=== PATIENT | male | born 1955 | race Caucasian/White ===

== ENCOUNTER 2016-11-13 09:06 | Emergency (ER) | payer BC ==
[2016-11-13 09:27] LABS: EOSINOPHIL (%) 7.2 % (0-5); EOSINOPHIL COUNT 0.4 K/uL (0-0.3); HEMATOCRIT 47.6 % (38.0-50.0); IMMATURE GRANULOCYTE (%) 0.6 % (0.0-0.7); INSTRUMENT ABS NEUTROPHIL CT 3.1 K/uL; LYMPHOCYTE COUNT 1.4 K/uL (1.0-2.8); MCH 31.3 PG (29.0-34.0); MCHC 33.2 G/DL (30.0-36.0); MCV 94.4 FL (86-99); MEAN PLAT.VOLUME 11.7 uM^3 (9.0-12.4); MONOCYTE (%) 8.2 % (3-12); MONOCYTE COUNT 0.4 K/uL (0-0.8); NEUTROPHIL COUNT 3.1 K/uL (1.8-6.4); PLATELET COUNT 199 K/uL (156-360); RBC DIS.WIDTH-CV 11.8 % (11.8-14.6); RED BLOOD COUNT 5.04 M/uL (4.00-5.50); WHITE BLOOD COUNT 5.3 K/uL (4.1-10.2)
[2016-11-13 09:35] LABS: AMYLASE 43 IU/L (1-118); CHLORIDE 106 mEq/L (99-109); POTASSIUM 4.5 mEq/L (3.7-5.4); SODIUM 141 mEq/L (136-147)
[2016-11-13 09:37] LABS: GLUCOSE 123 mg/dL (70-99)
[2016-11-13 09:38] LABS: ANION GAP 11 MEQ/L (2-14)
[2016-11-13 09:40] LABS: SERUM ETHYL ALCOHOL < 10 mg/dL
[2016-11-13 09:41] LABS: GFR ESTIMATE (CALCULATED) > 59 mL/min/
[2016-11-13 09:42] LABS: UREA NITROGEN (BUN) 15 mg/dL (9-23)
[2016-11-13 09:44] LABS: LIPASE 31 U/L (1.0-51.0)
[2016-11-13] MEDS ORDERED: PERCOCET 5/31 TABLET PO (15:04)
[2016-11-13] MEDS ORDERED: MOTRIN800 MG PO (15:04)
[2016-11-13] MEDS ORDERED: FLEXERIL10 MG PO (15:04)
[2016-11-13 15:26] LABS: ADD MIUA? NO; BILIRUBIN NEGATIVE; BLOOD NEGATIVE; COLOR STRAW ((YELLOW)); GLUCOSE (STRIP) NEGATIVE; KETONES 20; LEUKOCYTES NEGATIVE; NITRITE NEGATIVE; PROTEIN (STRIP) NEGATIVE; SPECIFIC GRAVITY 1.026 (1.000-1.030); UCUL ADDED? NO; UROBILINOGEN 0.2 MG/DL (0.2-1.0)
[2016-11-13 15:40] LABS: AMPHETAMINE NEGATIVE (500 ng/mL); BARBITURATES NEGATIVE (200 ng/mL); BENZODIAZEPINES NEGATIVE (150 ng/mL); COCAINE NEGATIVE (150 ng/mL); METHADONE NEGATIVE (200 ng/mL); METHAMPHETAMINE NEGATIVE (500 ng/mL); OPIATES (MORPHINE) NEGATIVE (100 ng/mL); OXYCODONE NEGATIVE (100 ng/mL); PHENCYCLIDINE NEGATIVE (25 ng/mL); PROPOXYPHENE NEGATIVE (300 ng/mL); THC CANNABINOIDS NEGATIVE (50 ng/mL); TRICYCLIC ANTIDEPRESSANTS NEGATIVE (300 ng/mL)
[2016-11-13 15:41] LABS: INTERNAL CONTROLS VALID? YES
== END 2016-11-13 15:30 | disposition home or self-care (01) ==
LOC: TRA 09:06
PROVIDERS: Emergency Medicine
DX: S13.9XXA Sprain of joints and ligaments of unspecified parts of neck, initial encounter (principal); S40.011A Contusion of right shoulder, initial encounter; S50.01XA Contusion of right elbow, initial encounter; S60.221A Contusion of right hand, initial encounter; S60.211A Contusion of right wrist, initial encounter; R20.2 Paresthesia of skin; V03.10XA Pedestrian on foot injured in collision with car, pick-up truck or van in traffic accident, initial encounter; Y93.02 Activity, running; E78.00 Pure hypercholesterolemia, unspecified
CPT/HCPCS: 70450; 71260; 72125; 72129; 72131; 73030; 73060; 73080; 73110; 73130; 73502; 74176; 80048; 81003; 82150; 83690; 85025; 86850; 86900; 86901; 99281; 99285; G0480; J2405; J3010